=== PATIENT | male | born 1955 | race Caucasian/White ===

== ENCOUNTER 2025-02-05 01:05 | Day surgery (SDC) | payer MEDICARE, OTHER, SELFPAY ==
[2025-01-23 13:54] VITALS: BMI 25.1
[2025-02-05 06:42] VITALS: BP 173/84; PULSE 79; RESP 16; TEMP 36.1; O2SAT 100
[2025-02-05] MEDS: LACTATED RINGERS 1,000 ML 150 ML IV CONT (06:55)
--- NOTE | 2025-02-05 07:37 | P.PNAN_ITS ---
Anes - Initial Pre Proc Eval Procedure: Operation Date: 02/05/25 08:00 Proposed Procedures p Colonoscopy - Andrea Sam MD Date/Time: 02/05/25 07:37 Surgeon: Andrea Sam MD Pre Op Diagnosis: family hx of cancer Patient Data Age: 69 Gender: M Height: 1.8 m Weight: 83 kg Last Vital Signs Temp 97 F L 02/05/25 06:42 Pulse 79 02/05/25 06:42 Resp 16 02/05/25 06:42 BP 173/84 H 02/05/25 06:42 Pulse Ox 100 02/05/25 06:42 O2 Del Method Room Air 02/05/25 06:42 Allergies Allergy/AdvReac Type Severity Reaction Status Date / Time No Known Drug Allergies Allergy Unknown Verified 02/05/25 06:41 Home Medications ?Medication ?Instructions ?Recorded ?Confirmed ?Type taxrxkfw-uxkssjlv-gnkbr acids 1 tablet PO DAILY 12/19/22 02/05/25 History tablet omega-3 fatty acids 1 cap PO DAILY 12/19/22 02/05/25 History Patient hx anesthesia problems: none Family hx anesthesia problems: none Results Review: All pre-operative results and documents have been reviewed as part of the pre- operative evaluation. [facility] Past Medical History Medical History (Updated 01/14/25 @ 09:58 by Susi Moraes NP) BMI 25.0-25.9,adult Hypertension Elevated BP without diagnosis of hypertension BMI 27.0-27.9,adult Cerumen impaction Hyperlipidemia Paresthesia Family hx of colon cancer BMI 26.0-26.9,adult Encounter to establish care Wellness examination Kidney stones Healthy adult Family History Family History Father Heart disease Mother Asthma Colon cancer Sibling Colon cancer Social History Social History Smoking status: Never smoker Alcohol intake: never Substance use: never Substance use type: does not use Lack of Transportation: No Lack of Food: Never True Current Housing: I Have Housing Concerned About Future Housing: No Difficulty Paying Gas/Electric Bills: No Difficulty Paying for Meds: No Currently Unemployed: No Education: Bachelor's Degree Difficulty w/ Childcare or Family Care: No Living arrangements: with family Additional living arrangements comments: Spiritual care concerns: No Anes - Eval Final PreProcedure Day of Procedure 02/05/25 07:37 Patient weight: normal Heart: regular rate and rhythm Lungs: clear to auscultation Airway: Mallampati scale class II Neurological: alert and oriented Last oral intake: >/= 8 hours ASA classification: II Emergent: no Anesthetic plan: proceed Anesthesia type and monitoring: general GIVS and standard monitoring Results Review: All pre-operative results and documents have been reviewed as part of the pre- operative evaluation. Informed Consent: The patient's anesthetic plan and its attendant risks and benefits were discussed with the patient/family/POA. Questions were solicited and answers provided to the satisfaction of the patient/family/POA.
--- NOTE | 2025-02-05 07:55 | P.HP_ITS ---
H&P: HPI History of Present Illness Date/Time: 02/05/25 07:55 Chief Complaint: Family history colorectal cancer-history of polyps Narrative: This patient has family history of colorectal cancer. his mother had when she was 65 and his brother when he was in his 40s. In addition, his last colonoscopy was 7 years ago and he was found to have polyps. He is here for surveillance colonoscopy. Review of Systems Review of Systems: All systems reviewed & are unremarkable except as noted in HPI and below PMFSH Past Medical History Medical History (Updated 01/14/25 @ 09:58 by Susi Moraes NP) BMI 25.0-25.9,adult Hypertension Elevated BP without diagnosis of hypertension BMI 27.0-27.9,adult Cerumen impaction Hyperlipidemia Paresthesia Family hx of colon cancer BMI 26.0-26.9,adult Encounter to establish care Wellness examination Kidney stones Healthy adult Family History Family History Father Heart disease Mother Asthma Colon cancer Sibling Colon cancer Social History Social History Smoking status: Never smoker Alcohol intake: never Substance use: never Substance use type: does not use Lack of Transportation: No Lack of Food: Never True Current Housing: I Have Housing Concerned About Future Housing: No Difficulty Paying Gas/Electric Bills: No Difficulty Paying for Meds: No Currently Unemployed: No Education: Bachelor's Degree Difficulty w/ Childcare or Family Care: No Living arrangements: with family Additional living arrangements comments: Spiritual care concerns: No Meds Home Medications and Allergies Home Medications ?Medication ?Instructions ?Recorded ?Confirmed ?Type cxmodptf-rrysqlnh-wiugw acids 1 tablet PO DAILY 12/19/22 02/05/25 History tablet omega-3 fatty acids 1 cap PO DAILY 12/19/22 02/05/25 History Allergies Allergy/AdvReac Type Severity Reaction Status Date / Time No Known Drug Allergies Allergy Unknown Verified 02/05/25 06:41 Vital Signs Vital Signs - 24 hr 02/05/25 06:42 Temperature 97 F L Pulse Rate 79 Respiratory Rate 16 Blood Pressure 173/84 H Pulse Oximetry 100 Oxygen Delivery Room Air Exam Const: General: cooperative and healthy appearing Resp: Effort & Inspection: normal respiratory effort and able to speak in complete sentences Auscultation: clear to auscultation bilaterally Cardio: Rate: regular rate Rhythm: regular rhythm GI: Inspection: normal to inspection GI Palp: No No hepatosplenomegaly present Auscultation: normal bowel sounds Rectal Exam: deferred Skin: General skin exam: normal color Psych: Appearance: grossly normal Mental Status: mental status grossly normal Assessment and Plan Assessment and plan (1) Family history of colon cancer requiring screening colonoscopy: Code(s): Z80.0 - Family history of malignant neoplasm of digestive organs Status: Acute Assessment and Plan: The patient is deemed a good candidate for the procedure. Consent signed. Will proceed.
[2025-02-05 08:24] VITALS: BP 122/75; PULSE 74; RESP 18; O2SAT 99
[2025-02-05 08:34] VITALS: BP 128/75; PULSE 69; RESP 20; O2SAT 100
[2025-02-05 08:44] VITALS: BP 133/87; PULSE 65; RESP 20; O2SAT 100
== END 2025-02-05 08:56 | disposition home or self-care (01) ==
PROVIDERS: PCP Nurse Practitioner Family; Referring Provider Nurse Practitioner Family; Visit Provider Internal Medicine Gastroenterology
PROC: 0DJD8ZZ Inspection of Lower Intestinal Tract, Via Natural or Artificial Opening Endoscopic (ICD-10-PCS; CPT 45378; principal; 2025-02-05 08:00)
DX: Z12.11 Encounter for screening for malignant neoplasm of colon (principal); D12.0 Benign neoplasm of cecum; D12.2 Benign neoplasm of ascending colon; K64.8 Other hemorrhoids; I10 Essential (primary) hypertension; E78.5 Hyperlipidemia, unspecified; Z87.442 Personal history of urinary calculi; Z80.0 Family history of malignant neoplasm of digestive organs; Z82.49 Family history of ischemic heart disease and other diseases of the circulatory system
CPT/HCPCS: 45385; 88305; J2003; J2704; J7120